=== PATIENT | female | born 1965 | race Two or more races ===

== ENCOUNTER 2024-01-15 17:20 | Inpatient (IN) | payer OTHER ==
[~2024-01-15] VITALS: Ht 162.6 cm; Wt 74.4 kg
[2024-01-15 19:37] LABS: Urine Bacteria FEW /hpf (None Seen); Urine Blood 1+ /uL (Negative); Urine Clarity Turbid (Clear); Urine Color Yellow (Yellow); Urine Hyaline Cast MANY /lpf (0 - 2); Urine Mucus FEW (None Seen); Urine Protein, UAD 1+ (Negative); Urine Urobilinogen 3 mg/dL (Negative); Urine WBC 249 /hpf (0 - 5); Urine pH 5.5 (5.0-9.0)
[2024-01-15] MEDS ORDERED: cefTRIAXone 1GM/50ML D5W 50 ML IV ONE (19:45)
[2024-01-15 19:53] LABS: Basophils # (auto) 0 10 ^3/uL (0-0.2); Basophils % (auto) 0.5 % (0.0-2.0); Eosinophils # (auto) 0 10 ^3/uL (0-0.8); Eosinophils % (auto) 0.3 % (0.0-7.0); Hematocrit 44.1 % (36.0-46.0); Hemoglobin 15.3 g/dL (12.2-16.2); Lymphocytes % (auto) 37.5 % (10.0-50.0); Mean Corpuscular Hgb Conc. 34.8 g/dL (32.0-36.0); Monocytes # (auto) 0.6 10 ^3/uL (0-1.3); Monocytes % (auto) 7.8 % (0.0-12.0); Neutrophils # (auto) 4.3 10 ^3/uL (1.6-8.6); Neutrophils % (auto) 53.9 % (37.0-80.0); Red Blood Cells 5.12 10^6/uL (4.0-5.20); Red Cell Distribution Width 13.1 % (11.8-14.3); White Blood Cell 7.9 10^3/uL (4.4-10.8)
[2024-01-15 20:16] LABS: Alanine Aminotransferase 46 U/L (7-40); Albumin 5.1 g/dL (3.2-4.8); Alkaline Phosphatase 78 U/L (46-116); Anion Gap 15 (5-15); Aspartate Aminotransferase 20 U/L (13-40); BUN/Creatinine Ratio 20.4 (10.0-20.0); Bilirubin, Total 0.8 mg/dL (0.2-1.0); Blood Urea Nitrogen 21 mg/dL (9-23); Calcium 10.6 mg/dL (8.7-10.4); Carbon Dioxide 17 mmol/L (20-30); Chloride 106 mmol/L (98-107); Glucose 93 mg/dL (74-106); Potassium 3.4 mmol/L (3.5-5.1); Sodium 138 mmol/L (136-145); Total Protein 8.2 g/dL (5.7-8.2)
[2024-01-15] MEDS ORDERED: MORPHINE SULFATE INJ 2 MG/ml SYRG IV PRN (22:30)
[2024-01-15] MEDS ORDERED: NITROGLYCERIN 0.4 MG SL TAB SL PRN (22:30)
[2024-01-15] MEDS ORDERED: SOD CHL 0.45% 1,000 ML IV ONE (22:45)
[2024-01-15] MEDS ORDERED: hydrALAZINE HCL 10 MG TAB PO PRN (22:45)
[2024-01-15 22:50] LABS: INR 1.03 (0.9-1.15); Prothrombin Time 10.9 sec (9.3-11.8)
[2024-01-15 23:33] VITALS: PULSE 95; RESP 18; O2SAT 97
[2024-01-16] VITALS (9 sets, daily range): BP systolic 99–118; BP diastolic 69–80; PULSE 66–107; RESP 16–77; TEMP 97.6–98.2; O2SAT 93–99
[2024-01-16 06:57] LABS: Alanine Aminotransferase 42 U/L (7-40); Alkaline Phosphatase 73 U/L (46-116); Anion Gap 12 (5-15); BUN/Creatinine Ratio 24.5 (10.0-20.0); Blood Urea Nitrogen 23 mg/dL (9-23); Calcium 10.2 mg/dL (8.7-10.4); Carbon Dioxide 22 mmol/L (20-30); Chloride 103 mmol/L (98-107); Glucose 86 mg/dL (74-106); Potassium 3.7 mmol/L (3.5-5.1); Sodium 137 mmol/L (136-145)
[2024-01-16 06:58] LABS: Albumin 4.7 g/dL (3.2-4.8); Aspartate Aminotransferase 20 U/L (13-40)
[2024-01-16 06:59] LABS: Bilirubin, Total 0.9 mg/dL (0.2-1.0); Total Protein 7.6 g/dL (5.7-8.2)
[2024-01-16 07:06] LABS: Basophils # (auto) 0 10 ^3/uL (0-0.2); Basophils % (auto) 0.4 % (0.0-2.0); Eosinophils # (auto) 0 10 ^3/uL (0-0.8); Eosinophils % (auto) 0.3 % (0.0-7.0); Hematocrit 42.4 % (36.0-46.0); Hemoglobin 14.4 g/dL (12.2-16.2); Lymphocytes # (auto) 2.3 10 ^3/uL (0.4-5.4); Lymphocytes % (auto) 33.2 % (10.0-50.0); Mean Corpuscular Hemoglobin 29.5 pg (28.0-32.0); Mean Corpuscular Hgb Conc. 34.1 g/dL (32.0-36.0); Mean Corpuscular Volume 86.6 fL (80.0-100.0); Monocytes # (auto) 0.6 10 ^3/uL (0-1.3); Monocytes % (auto) 8.1 % (0.0-12.0); Neutrophils # (auto) 4.1 10 ^3/uL (1.6-8.6); Nucleated Red Blood Cells % 0.1 %; Red Blood Cells 4.89 10^6/uL (4.0-5.20)
[2024-01-16] MEDS: ASPirin 325 MG TAB PO SCH (09:25)
[2024-01-16] MEDS: CIPROFLOXACIN 400MG/200ML 200 ML IV SCH (09:25)
[2024-01-16] MEDS ORDERED: MECL12.586 PO (10:41)
[2024-01-16] MEDS ORDERED: LEVO500T91 PO (10:41)
[2024-01-16] MEDS: SODIUM CHLORIDE 0.9% 1,000 ML IV ONE (15:41)
[2024-01-16] MEDS: LORazepam 2MG/ML-1ML VIAL IV ONE (16:27)
[2024-01-18 09:11] LABS: Hepatitis B Surface Antigen Negative (Negative)
[2024-01-18 09:32] LABS: Hepatitis C Antibody Negative (Negative)
== END 2024-01-16 17:07 | disposition home or self-care (01) | DRG 199 ==
LOC: ER 17:20 → TELE-CENTR 22:31 → TELE 22:31 → TELE-CENTR 01-16 01:13
PROVIDERS: ADMIT Internal Medicine; ATTEND Internal Medicine
DX: I16.0 Hypertensive urgency (principal); E66.9 Obesity, unspecified; N39.0 Urinary tract infection, site not specified; E78.5 Hyperlipidemia, unspecified; I10 Essential (primary) hypertension; Z82.49 Family history of ischemic heart disease and other diseases of the circulatory system; Z79.899 Other long term (current) drug therapy; Z68.28 Body mass index [BMI] 28.0-28.9, adult
CPT/HCPCS: 36415; 70450; 70551; 71045; 76775; 80053; 81001; 82962; 84484; 85025; 85610; 86803; 87340; 93005; 93306; G0378